=== PATIENT | male | born 1990 | race American Indian/Alaskan Native ===

== ENCOUNTER 2017-05-07 17:17 | Emergency (ER) | payer SELFPAY ==
[2017-05-07 18:01] VITALS: BP 143/62
[2017-05-07] MEDS ORDERED: MOTRIN PO ONE (18:42)
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
== END 2017-05-07 20:48 | disposition home or self-care (01) ==
LOC: ED 17:17
DX: S80.212A Abrasion, left knee, initial encounter (principal); S80.211A Abrasion, right knee, initial encounter; R51 Headache; F20.9 Schizophrenia, unspecified; F17.200 Nicotine dependence, unspecified, uncomplicated; Z91.018 Allergy to other foods; Z91.041 Radiographic dye allergy status; Y04.0XXA Assault by unarmed brawl or fight, initial encounter; Y93.89 Activity, other specified; Y99.8 Other external cause status; Y92.89 Other specified places as the place of occurrence of the external cause
CPT/HCPCS: 70450